=== PATIENT | female | born 2000 | race African-American/Black ===

== ENCOUNTER 2022-05-17 09:51 | Observation (INO) ==
[2022-05-17] MEDS ORDERED: CHARCOAL AQUEOUS 25 GM/120 ML BOTTLE PO STA (10:24)
[2022-05-17 11:05] LABS: Basophils % 0.5 % (0.0-0.8); Eosinophils # 0.1 10*3/uL (0.0-0.87); Eosinophils % 1.4 % (0.00-10.9); Hematocrit 33.4 VOL% (35.7-47.0); Hemoglobin 10.4 GM/DL (12.0-16.0); Immature Granulocytes % 0.3 %; Immature Granulocytes Absolute 0.02 #; Lymphocytes # 1.6 10*3/uL (1.4-4.0); Lymphocytes % 26.4 % (21.3-54.2); Mean Corpuscular HGB Conc 31.1 GM/DL (32-36); Mean Corpuscular Volume 70.3 FL (87-102); Mean Platelet Volume 10.3 FL (9.6-12.0); Monocytes # 0.3 10*3/uL (0.11-0.8); Monocytes % 5.8 % (1.7-12.7); Neutrophils % 65.6 % (38.7-73.9); Platelet Count 248 T/CUMM (130-400); Red Blood Count 4.75 MC/CUMM (3.8-5.5); Red Cell Distribution Width 15.5 % (9.3-17.3); White Blood Count 5.9 T/CUMM (4-12)
[2022-05-17 11:22] LABS: Alanine Aminotransferase 21 U/L (13-56); Albumin 4.5 G/DL (3.4-5.0); Alkaline Phosphatase 40 U/L (45-117); Aspartate Amino Transferase 16 U/L (0-37); Blood Urea Nitrogen 11 MG/DL (7-18); Calcium 9.5 MG/DL (8.5-10.1); Carbon Dioxide 24 MMOL/L (21-32); Chloride 108 MMOL/L (98-107); Glucose 93 MG/DL (74-106); Osmolality,Calculated 277.4 MOS/KG (273-304); Potassium 3.1 MMOL/L (3.5-5.1); Sodium 140 MMOL/L (136-145); Total Protein 8.4 G/DL (6.4-8.2)
[2022-05-17] MEDS ORDERED: ACETYLCYSTEINE IV ONE (11:42)
[2022-05-17] MEDS ORDERED: DEXTROSE 5% IV ONE (11:42)
[2022-05-17 11:44] LABS: Barbiturates Screen,Urine Negative (Negative); Benzodiazepines Screen,Urine Negative (Negative); Cannabinoid Screen,Urine Positive (Negative); Opiate Screen,Urine Negative (Negative); Phencyclidine Screen,Urine Negative (Negative)
[2022-05-17] MEDS ORDERED: ONDANSETRON 4 MG/2 ML VIAL IV PRN (12:36)
[2022-05-17 14:26] LABS: Bacteria,Urine Occasional /HPF (Few); Mucus,Urine Many /LPF (Occasional); RBC,Urine 4 /HPF (0-4); Squamous Epithelial Cell,Urine Occasional /HPF (0-10)
[2022-05-17 14:27] LABS: Protein,Urine Trace mg/dL (Negative); Urine Appearance Clear (Clear); Urine Color Yellow (Yellow); Urine Specific Gravity > 1.030 (1.001-1.035)
[2022-05-17 14:28] LABS: Glucose,Urine (UA) Negative (Negative); Ketones,Urine >160 mg/dL (Negative); Nitrite,Urine Negative (Negative)
[2022-05-17 14:29] LABS: Bilirubin,Urine Small mg/dL (Negative); Blood, Urine Negative (Negative)
[2022-05-17] MEDS: SODIUM CHLORIDE 0.9% 1,000 ML IV SCH (14:51)
[2022-05-17 16:34] LABS: Basophils % 0.7 % (0.0-0.8); Eosinophils # 0.1 10*3/uL (0.0-0.87); Eosinophils % 1.7 % (0.00-10.9); Immature Granulocytes % 0.3 %; Immature Granulocytes Absolute 0.02 #; Lymphocytes # 2.2 10*3/uL (1.4-4.0); Lymphocytes % 35.8 % (21.3-54.2); Mean Corpuscular HGB Conc 31.3 GM/DL (32-36); Mean Corpuscular Volume 69.9 FL (87-102); Monocytes # 0.4 10*3/uL (0.11-0.8); Monocytes % 6.3 % (1.7-12.7); Neutrophils % 55.2 % (38.7-73.9); Platelet Count 238 T/CUMM (130-400); Red Blood Count 4.58 MC/CUMM (3.8-5.5); Red Cell Distribution Width 15.6 % (9.3-17.3)
[2022-05-17 16:35] LABS: Albumin 3.7 G/DL (3.4-5.0); Calcium 8.7 MG/DL (8.5-10.1); Osmolality,Calculated 281.1 MOS/KG (273-304); Potassium 3.1 MMOL/L (3.5-5.1); Total Protein 7.3 G/DL (6.4-8.2)
[2022-05-18 05:20] LABS: Basophils % 0.6 % (0.0-0.8); Eosinophils # 0.1 10*3/uL (0.0-0.87); Hematocrit 32.2 VOL% (35.7-47.0); Hemoglobin 10.2 GM/DL (12.0-16.0); Immature Granulocytes % 0.2 %; Immature Granulocytes Absolute 0.01 #; Lymphocytes # 1.5 10*3/uL (1.4-4.0); Mean Corpuscular HGB Conc 31.7 GM/DL (32-36); Mean Corpuscular Volume 69.8 FL (87-102); Mean Platelet Volume 9.9 FL (9.6-12.0); Monocytes # 0.4 10*3/uL (0.11-0.8); Monocytes % 7.2 % (1.7-12.7); Platelet Count 232 T/CUMM (130-400); Red Blood Count 4.61 MC/CUMM (3.8-5.5); Red Cell Distribution Width 15.2 % (9.3-17.3)
[2022-05-18 05:41] LABS: Albumin 3.8 G/DL (3.4-5.0); Bilirubin,Total 0.9 MG/DL (0.20-1.00); Calcium 8.8 MG/DL (8.5-10.1); Osmolality,Calculated 274.5 MOS/KG (273-304); Potassium 3.2 MMOL/L (3.5-5.1); Total Protein 7.3 G/DL (6.4-8.2)
[2022-05-18] MEDS: SODIUM CHLORIDE 0.9% 1,000 ML IV SCH ×3 (07:11→12:21)
[2022-05-18] MEDS ORDERED: PANTOPRAZOLE 40 MG TABLET PO SCH (09:00)
[2022-05-18 20:54] VITALS: BP 108/62
== END 2022-05-18 20:46 ==
LOC: N.ED 09:51 → N.EDINP 09:51 → SUATTDRO 12:30 → N.EDINP 17:15 → N.TELES 17:24
PROVIDERS: ADMIT Nurse Practitioner Adult Health; ATTEND Internal Medicine Geriatric Medicine